=== PATIENT | male | born 1970 | race African-American/Black ===

== ENCOUNTER 2019-08-02 11:52 | Emergency (ER) | payer SELFPAY ==
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
--- NOTE | 2019-08-02 13:00 | CR ---
Chest: 2 views of the chest were obtained. Comparison: No prior chest x-ray. Heart size and mediastinum are normal. Lungs are clear with no acute parenchymal change. Bony structures are within normal limits for the patient's age. Impression: 1. Nothing acute is appreciated on 2 view chest x-ray. Diagnostic code #1 This report was dictated in [place] Standard Time
== END 2019-08-02 13:11 | disposition home or self-care (01) ==
LOC: MW.ED 11:52
DX: J39.9 Disease of upper respiratory tract, unspecified (principal)
CPT/HCPCS: 71046; 71046-26; 87804; 99283; 99283-25